=== PATIENT | male | born 1980 | race Caucasian/White ===

== ENCOUNTER 2022-03-19 15:16 | Emergency (ER) | payer BC ==
[~2022-03-19] VITALS: Ht 177.8 cm; Wt 102.1 kg
[2022-03-19 15:33] VITALS: BP_SYST 161
--- NOTE | 2022-03-19 16:24 | NUR ---
BROUGHT BACK TO [facility]ALLWAY BED AND REPORT GIVEN TO NURSE
--- NOTE | 2022-03-19 16:25 | NUR ---
Pt brought by self, A&Ox4, pt presents to ER with skin rash on back and diarrhea, skin pink and warm, cap refill <3, VSS.
--- NOTE | 2022-03-19 16:36 | NUR ---
Dr Ying evaluating patient at bedside.
[2022-03-19 17:11] LABS: BASOPHILS % (AUTO) 0.7 % (0.0-2.0); EOSINOPHILS # (AUTO) 0.1 K/uL (0.0-0.4); EOSINOPHILS % (AUTO) 2.3 % (0.0-4.0); LYMPHOCYTES # (AUTO) 2.2 K/uL (1.0-5.5); LYMPHOCYTES % (AUTO) 35.4 % (20.5-51.5); MEAN CORPUSCULAR HEMOGLOBIN 30 pg (27-31); MEAN CORPUSCULAR HGB CONC 34 % (32-36); MEAN CORPUSCULAR VOLUME 88 fL (79.0-98.0); MONOCYTES # (AUTO) 0.6 K/uL (0.0-1.0); MONOCYTES % (AUTO) 9.6 % (1.7-9.3); NEUTROPHILS # (AUTO) 3.3 K/uL (1.8-7.7); PLATELET COUNT (AUTO) 242 K/uL (130-430); RED BLOOD CELL COUNT(AUTO) 4.68 MIL/uL (4.2-6.2); RED CELL DISTRIBUTION WIDTH 12.9 % (9.0-15.0); WHITE BLOOD COUNT (AUTO) 6.3 K/uL (4.8-10.8)
[2022-03-19 17:49] LABS: ALBUMIN 3.6 g/dL (3.4-4.8); CALCIUM 8.5 mg/dL (8.4-11.0); CREATININE 1.02 mg/dL (0.55-1.30); TOTAL BILIRUBIN 0.1 mg/dL (0.0-1.0)
[2022-03-19 18:18] VITALS: BP_SYST 161
--- NOTE | 2022-03-19 18:19 | NUR ---
Patient given written and verbal discharge instructions and verbalizes understanding. ER MD discussed with patient the results and treatment provided. Patient in stable condition. ID arm band removed. No Rx given. Patient educated on pain management and to follow up with PMD. Pain Scale 0/10. Opportunity for questions provided and answered. Medication side effect fact sheet provided.
[2022-03-19 18:38] LABS: POTASSIUM 3.8 mmol/L (3.5-5.1)
== END 2022-03-19 18:18 | disposition home or self-care (01) ==
LOC: SED 15:16
DX: R21 Rash and other nonspecific skin eruption (principal); Z79.899 Other long term (current) drug therapy
CPT/HCPCS: 36415; 71045; 80053; 85025; 99284